=== PATIENT | male | born 1960 | race Caucasian/White ===

== ENCOUNTER 2019-04-30 12:08 | Observation (INO) | payer OTHER ==
[~2019-04-30] VITALS: Ht 172.8 cm; Wt 97.7 kg
[~2019-04-30 12:08] MED LIST: ACETAMINOPHEN W1 TA6 PO; ALLEGRA60 MG PO; ASPIR-LOW81 MG PO; CIPRO 500MG TA500 MG PO; FLOMAX0.4 MG PO; LISINOPRIL PO; MOTRIN 800800 MG/TAB PO; ORPHENADRINE C100 MG PO; PHENERGAN 25 TA25 MG PO; PHENERGAN25 MG RC; PRAVACHOL10 MG PO; PREDNISONE20 MG PO; PROVENTIL0.09 MG/A1 IH; RT ADVAIR 228 DISKUS IH; XOPENEX 1.1.25 MG/3 IH; ZITHROMAX 250M250 MG PO
[2019-04-30 12:25] LABS: BASO % 0.7 % (0.0-2.0); EOS # 0.3 (0.0-0.7); EOS % 5.3 % (0-4.0); GRAN # 3.3 (1.4-6.5); GRAN % 55.4 % (42.2-75.2); HEMATOCRIT 45.6 % (42.0-52.0); HEMOGLOBIN 15.7 g/dl (13.5-18.0); LYMPH # 1.7 (1.2-3.4); LYMPH % 27.8 % (20.0-51.0); MEAN CELL VOLUME 94 fl (80.0-100.0); MEAN CORPUSCULAR HEMOGLOBIN 33 pg (27.0-31.0); MEAN CORPUSCULAR HGB CONC 34 g/dl (33.0-37.0); MEAN PLATELET VOLUME 9.1 fl (7.4-10.4); MONO # 0.6 (0.1-0.6); MONO % 10.6 % (1.7-9.3); PLATELET COUNT 229 K/mm3 (130-400); RED BLOOD COUNT 4.83 M/mm3 (4.20-5.60); REDCELL DISTRIBUTION WIDTH-CV 11.9 % (11.5-14.5)
[2019-04-30 12:36] LABS: PROTHROMBIN TIME 11.6 SECONDS (9.7-12.8)
[2019-04-30 12:39] LABS: ALANINE AMINOTRANSFERASE 31 U/L (21-72); ALBUMIN 4.3 gm/dL (3.5-5.0); ALKALINE PHOSPHATASE 69 U/L (50-136); ANION GAP 7 mmol/L (7-16); AST,SGOT 32 U/L (15-37); BILIRUBIN,TOTAL 1.8 mg/dL (0.0-1.0); BLOOD UREA NITROGEN 19 mg/dL (9-20); CALCIUM 9.4 mg/dL (8.4-10.2); CARBON DIOXIDE 28 mmol/L (22-30); CHLORIDE 104 mmol/L (98-107); CREATININE, serum 1.13 (0.66-1.25); GLUCOSE 96 mg/dL (74-106); LIPASE 57 U/L (23-300); POTASSIUM 4.1 mmol/L (3.4-5.0); SODIUM 140 mmol/L (137-145); TOTAL PROTEIN 7.9 gm/dL (6.4-8.2)
[2019-04-30 13:09] LABS: TROPONIN-I < 0.012 ng/mL (0.000-0.035)
[2019-04-30] MEDS ORDERED: ASPIRIN 81M81 MG/TA2 PO (14:13)
[2019-04-30 14:57] VITALS: BP 119/77; PULSE 55; TEMP 98.7
[2019-04-30 15:00] VITALS: BP 119/77; PULSE 58; TEMP 98.7
--- NOTE | 2019-04-30 15:36 | NUR ---
Pt was admitted to room 316 from ED. He is awake and A/Ox4. He denies pain at this time. He does state he feels slightly lightheaded, he reports he believes its from the nitro. Saline lock to left AC is free of complications. Meds/allergies/pharm reviewd. Pt and were updated on plan of care and oriented to room and to staff, expressed understanding. Denies any other needs.
[2019-04-30 19:43] VITALS: BP 88/59; PULSE 61; TEMP 97.9
[2019-04-30 20:02] VITALS: BP 94/62
--- NOTE | 2019-04-30 20:06 | NUR ---
LAB ASSISTANT reports blood pressure low. Manually taken reading 94/62. Patient resting in recliner. Denies any symptoms beside headache 10/07. Would like tylenol. Assessment complete. Lungs clear. Heart sounds normal. Bowels active x4. Pulses present throughout. No edema noted at this time. Denies other needs. Order obtained from Dr. Nunez for tylenol 650 mg Q6 PRN.
[2019-04-30 22:06] VITALS: BP 90/62
--- NOTE | 2019-04-30 22:15 | NUR ---
Telemetry called stating patient pulse 55. Patient asleep in bed. Blood pressure taken 90/62. Dr. Nunez made aware. Patient is asymptomatic at this time. No new orders. Continue to monitor.
[2019-04-30 23:29] VITALS: BP 85/56; PULSE 52; TEMP 98.7
[2019-05-01] VITALS (10 sets, daily range): BP systolic 94–161; BP diastolic 62–87; PULSE 59–138; TEMP 98.1–98.7
--- NOTE | 2019-05-01 01:57 | NUR ---
Resting in bed asleep. Call light in reach.
--- NOTE | 2019-05-01 03:35 | NUR ---
Reports chest pressure when laying on right side. Instructed patient to not lay on that side. Patient states pressure relieved with laying flat or on left side. Otherwise no pain. Will continue to monitor.
--- NOTE | 2019-05-01 06:15 | NUR ---
Patient resting in bed this AM. Requested tylenol earlier in night for headache. Reported chest pressure when laying on right side-resolved with repositioning. Otherwise uneventful night. Call light in reach.
[2019-05-01 06:18] LABS: BASO # 0.1 (0.0-0.2); BASO % 0.6 % (0.0-2.0); EOS # 0.3 (0.0-0.7); EOS % 4.1 % (0-4.0); GRAN # 4.3 (1.4-6.5); HEMATOCRIT 42.2 % (42.0-52.0); HEMOGLOBIN 14.7 g/dl (13.5-18.0); LYMPH # 2.4 (1.2-3.4); LYMPH % 30.4 % (20.0-51.0); MEAN CELL VOLUME 95 fl (80.0-100.0); MEAN CORPUSCULAR HEMOGLOBIN 33 pg (27.0-31.0); MEAN CORPUSCULAR HGB CONC 35 g/dl (33.0-37.0); MEAN PLATELET VOLUME 9.2 fl (7.4-10.4); MONO # 0.7 (0.1-0.6); MONO % 9.4 % (1.7-9.3); PLATELET COUNT 214 K/mm3 (130-400); RED BLOOD COUNT 4.46 M/mm3 (4.20-5.60)
[2019-05-01 06:33] LABS: ANION GAP 6 mmol/L (7-16); BLOOD UREA NITROGEN 18 mg/dL (9-20); CALCIUM 8.8 mg/dL (8.4-10.2); CARBON DIOXIDE 26 mmol/L (22-30); CHLORIDE 107 mmol/L (98-107); CHOLESTEROL 172 mg/dL (120-200); CHOLESTEROL RISK RATIO 5.7; CREATININE, serum 1.13 (0.66-1.25); GLUCOSE 91 mg/dL (74-106); HDL CHOLESTEROL 30 mg/dL; LDL CHOLESTEROL 117 mg/dL; POTASSIUM 4.2 mmol/L (3.4-5.0); SODIUM 139 mmol/L (137-145); TRIGLYCERIDE 124 mg/dL
[2019-05-01 06:41] LABS: TROPONIN-I < 0.012 ng/mL (0.000-0.035)
--- NOTE | 2019-05-01 06:42 | NUR ---
Report given to MYKEL Mccray
--- NOTE | 2019-05-01 07:46 | NUR ---
Received report from MYKEL Meng.
--- NOTE | 2019-05-01 08:54 | NUR ---
Pt awake and alert, family in room, no C/O pain at this time, shift assessments complete, nuclear medicine moved Pt for scan.
--- NOTE | 2019-05-01 12:24 | NUR ---
First visit from the sfdc developer. No needs right now.
--- NOTE | 2019-05-01 14:21 | NUR ---
LUCIUS met with the patient, patient's (Brittani), daughter, and his daughter's fiance to discuss discharge plan. The patient lives in [place] with his . He reports independence with ADLs and does not have any DME. The patient's PCP is Dr. Sangeeta Graham and he receives his medications at [facility]. He reports no difficulties obtaining his meds. The patient does not have advanced directives completed, but he was interested in obtaining a form for DPOA-HC. LUCIUS provided. The patient plans to return back home with his upon discharge. No additional needs at this time.
--- NOTE | 2019-05-01 15:49 | NUR ---
Pt discharged to home, escorted to entrance, left via private auto.
== END 2019-05-01 15:50 | disposition home or self-care (01) ==
LOC: COL.ER 12:08 → MEDICAL 13:34 → EDBEDREQTM 13:49 → MEDICAL 05-01 15:50
PROVIDERS: Emergency Medicine; Nurse Practitioner Family; ADMIT Family Medicine
DX: R07.9 Chest pain, unspecified (principal); I10 Essential (primary) hypertension; E78.5 Hyperlipidemia, unspecified; J45.909 Unspecified asthma, uncomplicated; Z82.3 Family history of stroke; Z82.49 Family history of ischemic heart disease and other diseases of the circulatory system; Z79.899 Other long term (current) drug therapy; Z79.82 Long term (current) use of aspirin
CPT/HCPCS: A9500; C9113; G0378; J1650; J2405; J2785; J7030

== ENCOUNTER → 2019-05-15 | Outpatient (CLI) | payer OTHER ==
[~2019-05-15] MED LIST changes: +ASPIRIN 81M81 MG/TA2 PO
== END ==
LOC: COL.RAD 10:45
DX: K22.4 Dyskinesia of esophagus (principal)